=== PATIENT | female | born 1985 | race Caucasian/White ===

== ENCOUNTER 2016-09-29 11:35 | Inpatient (IN) | payer OTHER ==
[~2016-09-29] VITALS: Ht 160 cm; Wt 97.5 kg
[2016-09-29] MEDS ORDERED: BETAMET ACET/BETAMET NA PH 30 MG/5 ML VIAL IM ONE ×3 (16:00→17:45)
[2016-09-29] MEDS ORDERED: MAGNESIUM SULFATE IN WATER 100 ML IV ONE (17:30)
[2016-09-29] MEDS ORDERED: LR 1,000 ML IV SCH (17:33)
[2016-09-29] MEDS ORDERED: CEFAZOLIN 2 GM IVPB PREMIX 50 ML IV ONE (17:45)
[2016-09-29] MEDS ORDERED: ONDANSETRON HCL 4 MG/2 ML VIAL IVP PRN (19:30)
[2016-09-29] MEDS: MAGNESIUM SULFATE IN WATER 500 ML IV PRN (19:30)
[2016-09-30 00:42] VITALS: BP_SYST 120
[2016-09-30] MEDS: CEFAZOLIN 1 GM IVPB PREMIX 50 ML IV SCH ×3 (01:22→17:28)
[2016-09-30] MEDS: MAGNESIUM SULFATE IN WATER 500 ML IV PRN ×2 (06:19→14:44)
[2016-09-30] MEDS ORDERED: BETAMET ACET/BETAMET NA PH 30 MG/5 ML VIAL IM ONE (17:20)
== END 2016-09-30 21:46 | disposition home or self-care (01) | DRG 782 ==
LOC: SPU 11:35 → OBSVTOIN 16:00 → SPU 20:13
PROVIDERS: ADMIT Obstetrics & Gynecology; ATTEND Obstetrics & Gynecology
DX: O76 Abnormality in fetal heart rate and rhythm complicating labor and delivery (principal); Z3A.34 34 weeks gestation of pregnancy; Z90.49 Acquired absence of other specified parts of digestive tract; Z88.6 Allergy status to analgesic agent
CPT/HCPCS: 81002-TC; G0378; J0690; J0702; J2405; J3475; J7120

== ENCOUNTER 2016-10-15 02:16 | Observation (INO) | payer OTHER ==
[~2016-10-15] VITALS: Ht 157.5 cm; Wt 98.4 kg
== END 2016-10-15 04:00 | disposition home or self-care (01) ==
LOC: SPU 02:16
PROVIDERS: ADMIT Obstetrics & Gynecology; ATTEND Obstetrics & Gynecology
DX: Z34.93 Encounter for supervision of normal pregnancy, unspecified, third trimester (principal); Z3A.00 Weeks of gestation of pregnancy not specified
CPT/HCPCS: 81002-TC; G0378

== ENCOUNTER 2016-10-18 09:13 | Observation (INO) | payer OTHER ==
[~2016-10-18] VITALS: Ht 160 cm; Wt 99.3 kg
== END 2016-10-18 11:10 | disposition home or self-care (01) ==
LOC: SPU 09:13
PROVIDERS: ADMIT Obstetrics & Gynecology; ATTEND Obstetrics & Gynecology
DX: O26.893 Other specified pregnancy related conditions, third trimester (principal); R10.9 Unspecified abdominal pain; Z3A.37 37 weeks gestation of pregnancy
CPT/HCPCS: 76815; 81002; 82962; G0378

== ENCOUNTER 2016-10-24 17:15 | Inpatient (IN) | payer OTHER ==
[~2016-10-24] VITALS: Ht 160 cm; Wt 98.4 kg
[~2016-10-24 17:15] MED LIST: LIDOCAINE PF 1% 30ML(POUR BTL) INJ ONE
[2016-10-24] MEDS ORDERED: LR 1,000 ML IV ONE (18:12)
[2016-10-24] MEDS ORDERED: NALBUPHINE HCL 10 MG/ML AMP IVP PRN (18:15)
[2016-10-24] MEDS ORDERED: TERBUTALINE SULFATE 1 MG/ML VIAL SUBCUT ONE (18:15)
[2016-10-24 18:29] VITALS: BP_SYST 132
[2016-10-24 19:00] LABS: RED CELL DISTRIBUTION WIDTH 13.9 % (9.0-15.0)
[2016-10-24 19:03] LABS: HEMATOCRIT 32.6 % (36-48); MEAN CORPUSCULAR HEMOGLOBIN 26 pg (27-31); MEAN CORPUSCULAR HGB CONC 34 % (32-36); MEAN CORPUSCULAR VOLUME 78 fL (79.0-98.0); PLATELET COUNT (AUTO) 213 K/uL (130-430); RED BLOOD CELL COUNT(AUTO) 4.17 MIL/uL (4.2-6.2); WHITE BLOOD COUNT (AUTO) 10.7 K/uL (4.8-10.8)
[2016-10-24 20:05] LABS: BAND % (MANUAL) 0 % (0-6); LYMPHOCYTES % (MANUAL) 15 % (20-46)
[2016-10-24 20:06] LABS: ATYPICAL LYMPHOCYTES % 0 % (0-0); BASOPHILS % (MANUAL) 0 % (0-2); EOSINOPHILS % (MANUAL) 0 % (0-7); MONOCYTES % (MANUAL) 7 % (0-11)
[2016-10-24] MEDS: LR 1,000 ML IV SCH (20:10)
[2016-10-25] MEDS ORDERED: FENT2mCg/mL-ROPIVA0.2%/NS EPID 150 ML EP ONE (00:08)
[2016-10-25] MEDS ORDERED: FENT2mCg/mL-ROPIVA0.2%/NS EPID 150 ML EP SCH (00:08)
[2016-10-25] MEDS ORDERED: fentaNYL CITRATE/PF 100 MCG/2 ML AMP EP ONE (00:11)
[2016-10-25] MEDS ORDERED: fentaNYL CITRATE/PF 100 MCG/2 ML AMP ONE (00:11)
[2016-10-25] MEDS ORDERED: ONDANSETRON HCL 4 MG/2 ML VIAL ONE (00:13)
[2016-10-25] MEDS ORDERED: LR 1,000 ML IV ONE (00:35)
[2016-10-25] MEDS: LR 1,000 ML IV SCH (00:40)
[2016-10-25] MEDS ORDERED: fentaNYL CITRATE/PF 100 MCG/2 ML AMP IVP PRN (00:45)
[2016-10-25] MEDS ORDERED: ONDANSETRON HCL 4 MG/2 ML VIAL IVP PRN ×2 (00:45)
[2016-10-25] MEDS ORDERED: NALBUPHINE HCL 10 MG/ML AMP IVP PRN (00:45)
[2016-10-25] MEDS ORDERED: KETOROLAC TROMETHAMINE 30 MG VIAL IM PRN (00:45)
[2016-10-25] MEDS ORDERED: NALOXONE HCL 0.4 MG/ML AMP (NARCAN) IVP PRN (00:45)
[2016-10-25] MEDS ORDERED: DIPHENHYDRAMINE INJ 50 MG/ML VIAL IVP PRN (00:45)
[2016-10-25] MEDS ORDERED: ePHEDrine sulfate 50 MG/ML VIAL IVP PRN (00:45)
[2016-10-25] MEDS ORDERED: OXYTOCIN/NORMAL SALINE 1,000 ML IV ONE ×2 (01:14→01:48)
[2016-10-25] MEDS ORDERED: OXYTOCIN/NORMAL SALINE 1,000 ML IV SCH (01:48)
[2016-10-25] MEDS ORDERED: DERMOPLAST SPRAY TP PRN (02:00)
[2016-10-25] MEDS ORDERED: GLYCERIN/WITCH HAZEL (TUCKS PADS) TP PRN (02:00)
[2016-10-25] MEDS ORDERED: MEASLES,MUMPS&RUBELLA VACC/PF 12500 UNIT/0.5 ML VIAL SUBQ PRN (02:00)
[2016-10-25] MEDS ORDERED: LANOLIN 7 GM OINT. TP PRN (02:00)
[2016-10-25] MEDS ORDERED: METHYLERGONOVINE MALEATE 0.2 MG TABLET PO PRN (02:00)
[2016-10-25] MEDS ORDERED: SENNOSIDES/DOCUSATE SODIUM 1 TAB TABLET(SENOKOT-S) PO PRN (02:00)
[2016-10-25] MEDS ORDERED: ANUSOL 1 EA SUPP.RECT (PREPARATION H) RC PRN (02:00)
[2016-10-25] MEDS ORDERED: ACETAMINOPHEN 325 MG TABLET PO PRN (02:00)
[2016-10-25] MEDS ORDERED: OXYCODONE/ACETAMINOPHEN 5-325 TABLET PO PRN ×2 (02:00)
[2016-10-25] MEDS ORDERED: HYDROCORTISONE 0.5%, 28.35 GM TOPICAL CREAM TP PRN (02:00)
[2016-10-25] MEDS ORDERED: DOCUSATE SODIUM 100 MG CAPSULE PO PRN (02:00)
[2016-10-25] MEDS ORDERED: RHO(D) IMMUNE GLOBULIN/MALTOSE 1500 UNITS/1.3 ML (WINHRO) IM PRN (02:00)
[2016-10-25] MEDS: IBUPROFEN 600 MG TABLET PO SCH (06:17)
[2016-10-25] MEDS ORDERED: TEMAZEPAM 15 MG CAPSULE PO PRN (21:00)
[2016-10-26] MEDS: IBUPROFEN 600 MG TABLET PO SCH ×2 (00:40→06:17)
[2016-10-26 06:16] LABS: HEMOGLOBIN 9.5 g/dL (12.0-16.0)
[2016-10-26] MEDS ORDERED: IBUPROFEN 600 MG TABLET ONE (06:17)
== END 2016-10-26 07:43 | disposition home or self-care (01) | DRG 775 ==
LOC: SPU 17:15 → UNDODISIN 10-26 13:15 → SPU 10-30 05:21
PROVIDERS: ADMIT Obstetrics & Gynecology; ATTEND Obstetrics & Gynecology
PROC: 10E0XZZ Delivery of Products of Conception, External Approach (ICD-10-PCS; principal; 2016-10-25)
PROC: 0KQM0ZZ Repair Perineum Muscle, Open Approach (ICD-10-PCS; 2016-10-25)
PROC: 3E0134Z Introduction of Serum, Toxoid and Vaccine into Subcutaneous Tissue, Percutaneous Approach (ICD-10-PCS; 2016-10-25)
PROC: 3E0R3BZ Introduction of Anesthetic Agent into Spinal Canal, Percutaneous Approach (ICD-10-PCS; 2016-10-25)
PROC: 00HU33Z Insertion of Infusion Device into Spinal Canal, Percutaneous Approach (ICD-10-PCS; 2016-10-25)
DX: O99.214 Obesity complicating childbirth (principal); O71.4 Obstetric high vaginal laceration alone; Z37.0 Single live birth; E66.01 Morbid (severe) obesity due to excess calories; Z68.38 Body mass index [BMI] 38.0-38.9, adult; Z3A.38 38 weeks gestation of pregnancy; Z23 Encounter for immunization; Z88.5 Allergy status to narcotic agent
CPT/HCPCS: 36415; 81002-TC; 85007; 85018-TC; 85027; 86592; 86886; 86900; 86901; J2001; J2300; J2405; J2590; J3010; J7120